=== PATIENT | male | born 1985 | race Caucasian/White ===

== ENCOUNTER → 2021-06-28 | Outpatient (CLI) | payer BC ==
[~2021-06-28] MED LIST: MULT-445 PO
--- NOTE | 2021-06-28 10:05 | PDOC1 ---
INITIAL PAIN CONSULT DATE OF SERVICE: DOS: DATE: 06/28/21 TIME: 09:58 CHIEF COMPLAINT: Chief Complaint: Low back and left lower extremity pain HISTORY OF PRESENT ILLNESS: 36-year-old male presents with history of pain low back left lower extremity for 14 months not the result of any specific injury or accident that he is aware of is getting worse with time and has had significant pain in the left low back ra diating to the left anterior thigh medial thigh medial knee and at the medial lower leg into the foot on the left side medial aspect patient reports gets worse with walking standing changing positions describes the pain is sharp and stabbing the back throbbing and shooting in the leg intermittent intensity worse with activity with some numbness in the knee especially the medial knee as well as cramping and aching in the back and the leg. Patient reports generally does not awaken her from sleep at night better with sitting or lying down worse with walking standing or riding in a car for prolonged period of time patient reports generally does not affect his bowel bladder control or stability to walk but it has when it was more intense about a year ago patient reports has had chiropractic treatment as well as doing exercise with physical therapy exercises currently also trigger point injections which were helpful only temporarily all these modalities have been helpful but only slightly and he continues to do the exercises and chiropractic treatments currently. Patient reports his disability rating 0-10 10 me the worst is a 3 with family home responsibilities for with recreation social activity through his occupation 1 with sexual behavior and self-care activities and 0 with life support activities. Patient did have an MRI scan of the lumbar spine prior to seeing neurosurgeon who is recommending nonsurgical intervention at this time, MRI showing L3-4 posterior disc bulging with disc extrusion extending above and below the endplates most pronounced centrally and on the left which results in moderate left and mild right lateral recess narrowing overall mild spinal stenosis. Patient reports no loss of motor function but significant fatigability and some weakness in the left leg with extended standing or sitting. PAST MEDICAL HISTORY: PMH: Arthritis, cigarette smoking PREVIOUS SURGERIES: Past Surgical Hx: Gastric bypass February 2021 CURRENT MEDICATIONS: Current Meds: Active Scripts Medications Dose Route/Sig Max Daily Dose Days Date Category Multivitamins (Multivitamin) 1 Each Tablet 1 Tab PO DAILY 06/28/21 Reported ALLERGIES; Allergies: Coded Allergies: Penicillins (Verified Allergy, Intermediate, 06/28/21) naproxen (Verified Allergy, Intermediate, 06/28/21) FAMILY HISTORY: Family Hx: No major medical problems or conditions that he is aware of. SOCIAL HISTORY: Social Hx: Patient does not drink alcohol, uses smokeless tobacco and chewing tobacco for the past 10years is lives with his spouse has 2 children living at home lives in [facility], and is a trust and estates attorney REVIEW OF SYSTEMS: ROS: Positive for those items mentioned in history of present illness, all systems are reviewed, otherwise negative ,and are complete full and well-documented on patient's chart. PHYSICAL EXAM: VS: Blood pressure is 124/72 pulse 60 respirations 16 temperature 98.1 F height is 6 foot weight is 235 pounds. PE: PHYSICAL EXAMINATION: GENERAL: The patient is awake, alert, oriented, appropriate, very pleasant in demeanor HEENT: Shows normocephalic, atraumatic. Extraocular movements are intact and symmetrical. Oral cavity: Mucous membranes moist and pink. Dentition is intact. NECK: Shows anterior throat supple without palpable lymphadenopathy noted. Swallow reflex symmetrical. CHEST: Shows normal on inspection. Breath sounds are clear bilaterally, no rales rhonchi or wheezes auscultated. HEART: Shows S1, S2 clear. No murmurs auscultated. ABDOMEN: Soft, nontender, nondistended. No palpable organomegaly is noted. BACK: Shows spine grossly in the midline. Normal-appearing cervical lordotic c urvature. There is slightly increased thoracic kyphosis, some minor flattening of the lumbar lordotic curvature. Lumbar paraspinous muscles show symmetrical on inspection, on palpation shows some moderate tenderness diffusely throughout the upper, middle and lower distribution of the paraspinous muscles bilaterally and also into the lower thoracic paraspinous musculature, firm and tender, but without specific trigger points, without radiation of pain. The patient has good rotational motion of the lumbar spine, both laterally as well as extension and flexion without significant difficulty. No tenderness over the spinous processes, sacrum or sacroiliac regions. EXTREMITIES: Lower extremities show deep tendon reflexes 2+ in the patellar and tendo calcaneus tendons. Motor exam is 5 on a scale of 5 with right dorsiflexion, extension, quadriceps and hamstring flexion and 4/5 on the left. Peripheral pulses are 1+ posterior tibial. No peripheral edema is noted bilaterally. Lower extremities are warm and dry to touch, equal in color and appearance. Straight leg raise noted to be positive on the left at approximate 45 degrees decreased with knee flexion, right side is negative. Gaenslen's and Aleksandr's maneuvers are negative bilaterally. The patient is able to stand, stand on his toes without significant difficulty or loss of balance, walks with a normal-appearing gait does not appear to favor the right or left lower extremity significantly is not use any assistive device such as canes or walkers to ambulate. SKIN: Shows warm and dry, good turgor. No edema. No sores, rashes or bruising throughout. IMPRESSION: Impression: 36-year-old male with approximate 14-month history low back left lower extremity pain in a radicular fashion following an L3-4 dermatomal distribution. MRI scan lumbar spine as noted History of arthritis Plan: Options were discussed with patient including continued physical therapies medical management and interventional techniques. Patient is currently doing chiropractic treatment as well as physical therapy exercises without significant long-term improvement, he would like to pursue interventional techniques. We discussed a lumbar transforaminal injection at the L3-4 level on the left using descriptions as well as anatomical models to describe the procedure. Patient would like to proceed. Patient will wait for preauthorization with his insurance provider, once obtained we will plan on left L3-4 level transforaminal epidural steroid injection with fluoroscopic guidance at that time. In the meantime, patient continue with his strengthening stretching exercises as well as chiropractic treatment as scheduled and oral analgesics as currently. PHILIP STAHL MD Jun 28, 2021 10:05
== END | disposition home or self-care (01) ==
LOC: PNCL 08:17
PROVIDERS: ATTEND Anesthesiology
DX: M79.605 Pain in left leg (principal); M54.50 Low back pain, unspecified; M19.90 Unspecified osteoarthritis, unspecified site; Z79.899 Other long term (current) drug therapy; Z88.0 Allergy status to penicillin; Z88.8 Allergy status to other drugs, medicaments and biological substances
CPT/HCPCS: 99214; G0463

== ENCOUNTER → 2021-07-07 | Outpatient (CLI) | payer BC ==
[~2021-07-07] MED LIST changes: +BUPIVACAINE MPF 0.25% 10 ML VIAL. ONE; +DEXAMETHASONE PRES.FREE 10 MG/ML VIAL. ONE; +IOHEXOL 180 MG/ML 10 ML VIAL. ONE
--- NOTE | 2021-07-07 12:57 | PDOC ---
Progress Note - Pain Clinic Date of Service: DOS: DATE: 07/07/21 TIME: 12:54 Diagnosis: Dx: Lumbar radiculopathy with lumbar degenerative disc disease and lumbar spinal stenosis History or Present Illness: HPI: 36-year-old male returns for follow-up status post evaluation and preauthorization with the pain in the low back and left lower extremity worse with walking standing changing positions and sitting for prolonged periods patient reports his pain is aching and sharp in the back tight and shooting in the leg tingling burning cramping in the legs well in the lateral thigh anterior thigh medial thigh medial knee as well on the left side patient reports on and off intensity rates it as a 5 on a scale of 10 at its worst over the past week to an average to its least and is a 2 today. Patient reports no new motor or sensory deficits no bowel or bladder incontinence has not been stumbling or noticing any significant weakness in the left leg but occasionally fatigues greater than right leg. Physical Exam: VS: Blood pressure is 155/82 pulse 47 respirations 18 temperature is 90.1 F height is 6 foot weight is 230 pounds. PE: PHYSICAL EXAMINATION: GENERAL: The patient is awake, alert, oriented, appropriate, very pleasant in [facility] HEENT: Shows normocephalic, atraumatic. Extraocular movements are intact and symmetrical. Oral cavity: Mucous membranes moist and pink. Dentition is intact. NECK: Shows anterior throat supple without palpable lymphadenopathy noted. Swallow reflex symmetrical. CHEST: Shows normal on inspection. Breath sounds are clear bilaterally, no rales rhonchi or wheezes auscultated. HEART: Shows S1, S2 clear. No murmurs auscultated. ABDOMEN: Soft, nontender, nondistended. No palpable organomegaly is noted. BACK: Shows spine grossly in the midline. Normal-appearing cervical lordotic curvature. There is slightly increased thoracic kyphosis, some minor flattening of the lumbar lordotic curvature. Lumbar paraspinous muscles show symmetrical on inspection, on palpation shows some moderate tenderness diffusely throughout the upper, middle and lower distribution of the paraspinous muscles without specific trigger points, without radiation of pain. The patient has good rotational motion of the lumbar spine, both laterally as well as extension and flexion without significant difficulty. EXTREMITIES: Lower extremities show deep tendon reflexes 2+ in the patellar and tendo calcaneus tendons. Motor exam is 5 on a scale of 5 with right dorsiflexion, extension, quadriceps and hamstring flexion and 4/5 on the left. Peripheral pulses are 1 to posterior tibial. No peripheral edema is noted b ilaterally. Lower extremities are warm and dry. SKIN: Shows warm and dry, good turgor. No edema. No sores, rashes or bruising throughout. Procedure: Procedure: Options were discussed with the patient. Patient's old chart was viewed and current medication regimen updated, current review of systems updated today as well. We will proceed with a left L3-4 transforaminal epidural steroid injection with fluoroscopic guidance. Risks were discussed including but not limited to: Bleeding, infection, possibility of epidural hematoma and subsequent neurological compromise, dural puncture, headaches, spinal cord and/or nerve damage, potential injection into the vertebral artery at that level and permanent ischemic damage, side effects of steroid medication, and poor results regarding pain control. Patient understands and wished to proceed. Patient will return to the clinic in approximately 2 weeks for follow-up, was counseled as to return appointment, activity level, and side effect to be aware of. Medication Injected: Med Injected: Under sterile prep and drape patient was placed in prone position using C-arm fluoroscopic guidance to identify the L3-4 distribution oblique and slightly cephalad angled C arm. The left L3-4 target was identified and using lidocaine for anesthetizing the skin 22-gauge Yamila pencil point needle was then used to enter the skin and into the subcutaneous tissues using direct C-arm fluoroscopic guidance to guide the needle into the transforaminal aspect of the left L3-4 vertebrae this was confirmed with lateral views showing the needle tip in the superior aspect of the paravertebral region. Aspiration was noted to be negative, -1.5 cc of contrast was then injected with good spread both medially into the epidural space as well as laterally along the nerve root without uptake and without distribution and uptake on digital subtraction. At this time, a solution containing 2 cc of 0.25% bupivacaine and 15 mg dexamethasone was then injected. Needle was withdrawn and sterile bandage was applied. Patient tolerated procedure well had no immediate complications Condition at Discharge: Condition at Discharge: Condition at discharge is stable, patient tolerated procedure well and had no complications. PHILIP STAHL MD Jul 07, 2021 12:57
--- NOTE | 2021-07-07 13:03 | PDOC4 ---
Procedure Note: ICD 10 Code: ICD 10 Code: M54.16 M51.36 M48.06 Procedure Note: Patient was consented for left L3-4 transforaminal epidural steroid injection with fluoroscopic guidance. Risks were discussed including but not limited to: Bleeding, infection, possibility of epidural hematoma and subsequent neurological compromise, dural puncture, headaches, spinal cord and/or nerve damage, potential injection into the vertebral artery at that level with permanent ischemic damage, side effects of steroid medication, and poor results regarding pain control. Patient understands and wished to proceed. Under sterile prep and drape patient was placed in prone position using C-arm fluoroscopic guidance to identify the L3-4 distribution oblique and slightly cephalad angled C arm. The left L3-4 target was identified and using lidocaine for anesthetizing the skin 22-gauge Yamila pencil point needle was then used to enter the skin and into the subcutaneous tissues using direct C-arm fluoroscopic guidance to guide the needle into the transforaminal aspect of the left L3-4 vertebrae this was confirmed with lateral views showing the needle tip in the superior aspect of the paravertebral region. Aspiration was noted to be negative, -1.5 cc of contrast was then injected with good spread both medially into the epidural space as well as laterally along the nerve root without uptake and without distribution and uptake on digital subtraction. At this time, a pat ution containing 2 cc of 0.25% bupivacaine and 15 mg dexamethasone was then injected. Needle was withdrawn and sterile bandage was applied. Patient tolerated procedure well had no immediate complications PHILIP STAHL MD Jul 07, 2021 13:03
== END | disposition home or self-care (01) ==
LOC: PNCL 11:22
PROVIDERS: ATTEND Anesthesiology
DX: M51.16 Intervertebral disc disorders with radiculopathy, lumbar region (principal); M48.061 Spinal stenosis, lumbar region without neurogenic claudication; Z79.899 Other long term (current) drug therapy; Z88.0 Allergy status to penicillin; Z88.8 Allergy status to other drugs, medicaments and biological substances
CPT/HCPCS: 64483; J1100; J3490; Q9965